=== PATIENT | male | born 1985 | race African-American/Black ===

== ENCOUNTER 2017-10-12 23:15 | Emergency (ER) | payer OTHER ==
[~2017-10-12] VITALS: Ht 188 cm; Wt 83.9 kg
[2017-10-13] MEDS ORDERED: KETO10TA2 PO (02:38)
[2017-10-13] MEDS ORDERED: CEFUROXIME500 MG PO (02:38)
== END 2017-10-13 | disposition home or self-care (01) ==
LOC: ER 23:15
DX: S61.021A Laceration with foreign body of right thumb without damage to nail, initial encounter (principal); W25.XXXA Contact with sharp glass, initial encounter; Y93.89 Activity, other specified; Y92.59 Other trade areas as the place of occurrence of the external cause; Y99.8 Other external cause status